=== PATIENT | female | born 1955 | race Caucasian/White ===

== ENCOUNTER → 2021-03-03 13:43 | Outpatient (CLI) | payer MEDICARE, BC ==
[2021-03-03 15:19] LABS: T4 THYROXIN - FREE 0.81 ng/dL (0.76-1.46); THYROID STIMULATING HORMONE 1.59 uIU/mL (0.36-3.74)
== END | disposition home or self-care (01) ==
LOC: D.LAB 13:43
PROVIDERS: ATTEND Psychiatry & Neurology Neurology
DX: R41.3 Other amnesia (principal)

== ENCOUNTER → 2021-03-08 13:01 | Outpatient (CLI) | payer MEDICARE, BC | END | disposition home or self-care (01) | LOC: D.MRI 13:00 | PROVIDERS: ATTEND Psychiatry & Neurology Neurology | DX: R41.3 Other amnesia (principal) ==